=== PATIENT | male | born 2000 | race Two or more races ===

== ENCOUNTER 2022-04-17 19:07 | Emergency (ER) | payer MEDICAID, OTHER ==
[~2022-04-17] VITALS: Ht 177.8 cm; Wt 56.3 kg
[2022-04-17 19:22] VITALS: BP 110/61
[2022-04-17] MEDS ORDERED: ACETAMINOPHEN 325MG TABLET PO ONE (21:30)
== END 2022-04-17 23:00 | disposition home or self-care (01) ==
LOC: ER 19:07
DX: B34.9 Viral infection, unspecified (principal); Z20.822 Contact with and (suspected) exposure to COVID-19; Z98.890 Other specified postprocedural states
CPT/HCPCS: 87426; 87804; 99283; C9803

== ENCOUNTER 2022-12-26 18:15 | Emergency (ER) | payer MEDICAID, OTHER ==
[~2022-12-26] VITALS: Ht 175.3 cm; Wt 55.0 kg
[2022-12-26 18:52] VITALS: BP 110/66
== END 2022-12-26 21:20 | disposition home or self-care (01) ==
LOC: ER 18:42
DX: S13.9XXA Sprain of joints and ligaments of unspecified parts of neck, initial encounter (principal); V43.52XA Car driver injured in collision with other type car in traffic accident, initial encounter; Y93.89 Activity, other specified; Y92.488 Other paved roadways as the place of occurrence of the external cause
CPT/HCPCS: 71046; 99284

== ENCOUNTER 2023-05-04 19:38 | Emergency (ER) | payer OTHER ==
[~2023-05-04] VITALS: Ht 177.8 cm; Wt 57.8 kg
[2023-05-04 20:04] VITALS: BP 122/75; O2SAT 100
[2023-05-04] MEDS ORDERED: BACITRACIN ZINC OINT UDPKT TOP ONE (23:15)
[2023-05-04] MEDS ORDERED: ACETAMINOPHEN 325MG TABLET PO ONE (23:15)
[2023-05-04] MEDS ORDERED: TETANUS, DIPHTHERIA, PERTUSSIS VAC/PF 0.5ML (>10YR OLD) IM ONE (23:15)
[2023-05-05] MEDS ORDERED: NAPR-1129 MT (00:35)
[2023-05-05 01:16] VITALS: PULSE 60; RESP 12; TEMP 98.5
== END 2023-05-05 01:17 | disposition home or self-care (01) ==
LOC: ER 21:01
DX: S49.91XA Unspecified injury of right shoulder and upper arm, initial encounter (principal); G89.11 Acute pain due to trauma; S09.90XA Unspecified injury of head, initial encounter; V26.49XA Other motorcycle driver injured in collision with other nonmotor vehicle in traffic accident, initial encounter; Y93.89 Activity, other specified; Y92.89 Other specified places as the place of occurrence of the external cause; Y99.8 Other external cause status
CPT/HCPCS: 71045; 73000; 73030; 73060; 70450; 90715; 29125; 99285; 90471; Z7610; A4565